=== PATIENT | female | born 1955 | race Caucasian/White ===

== ENCOUNTER → 2016-09-15 | Outpatient (CLI) | payer BC ==
--- NOTE | 2016-09-15 16:22 | Diagnostic Imaging Report ---
EXAMINATION: Three views of the left foot. INDICATION: Left foot pain. FINDINGS: There is mild soft tissue swelling along the plantar aspect of the heel region. No fracture, dislocation, or radiopaque foreign body. Joint alignment is satisfactory. There is a calcaneal spur seen. IMPRESSION: Nonspecific mild soft tissue swelling along the plantar aspect of the heel. Dictated by: Dictated on workstation # [id number]
--- NOTE | 2016-09-17 09:41 | Diagnostic Imaging Report ---
EXAMINATION: Bilateral screening mammogram 2D views with tomosynthesis. The current study was also evaluated with a Computer Aided Detection (CAD) system. INDICATION: Screening. PERSONAL HISTORY: No current complaints stated on the questionnaire. COMPARISON: 11/30/2014. FINDINGS: The breasts are composed of heterogenously dense parenchyma which may decrease mammographic sensitivity. Allowing for technique and positional differences, no suspicious change is seen. IMPRESSION: No significant change. ACR BI-RADS Category 2: Benign findings. Result letter will be mailed to the patient. Note: At least 10% of breast cancer is not imaged by mammography. Dictated by: Dictated on workstation # [id number]
== END ==
LOC: RAD 15:29
PROVIDERS: ATTEND Family Medicine
DX: R22.42 Localized swelling, mass and lump, left lower limb (principal); M79.672 Pain in left foot; Z12.31 Encounter for screening mammogram for malignant neoplasm of breast
CPT/HCPCS: 73630; 77067

== ENCOUNTER → 2017-09-17 | Outpatient (CLI) | payer BC ==
--- NOTE | 2017-09-17 17:42 | Diagnostic Imaging Report ---
INDICATION: Routine screening. Comparison is made with prior studies from 09/15/2016 and 12/03/2014. 2-D and 3-D bilateral screening mammography was performed. The current study was also evaluated with a Computer Aided Detection (CAD) system. FINDINGS: Scattered fibronodular densities are identified bilaterally. The parenchymal pattern is stable. No mass or malignant-appearing microcalcifications are seen. The axillae are unremarkable. IMPRESSION: No mammographic features suspicious for malignancy are identified. ACR BI-RADS Category 1: Negative. Result letter will be mailed to the patient. Note: At least 10% of breast cancer is not imaged by mammography. Dictated by: Dictated on workstation # [id number]
== END ==
LOC: RAD 13:44
PROVIDERS: ATTEND Family Medicine
DX: Z12.31 Encounter for screening mammogram for malignant neoplasm of breast (principal)
CPT/HCPCS: 77067

== ENCOUNTER → 2018-05-06 | Outpatient (CLI) | payer BC ==
--- NOTE | 2018-05-06 18:58 | Diagnostic Imaging Report ---
INDICATION: Left breast pain and heaviness. Correlation is made with prior left mammogram from 09/17/2017 and 09/15/2016. Unilateral left 2-D and 3-D diagnostic mammography was performed with Computer-Aided Detection (CAD) system. FINDINGS: Scattered fibroglandular densities in the left breast are noted. The parenchymal pattern is stable. No mass or malignant-appearing microcalcifications are seen. There are benign calcifications present. Left axilla is unremarkable. IMPRESSION: Stable left mammogram with no mammographic features suspicious for malignancy identified. Even so, sonographic interrogation of the left breast at the area of pain is recommended and will be performed today. ACR BI-RADS Category 0: Incomplete. (Needs additional imaging evaluation). Result letter will be mailed to the patient. Note: At least 10% of breast cancer is not imaged by mammography. Dictated by: Dictated on workstation # [id number]
--- NOTE | 2018-05-06 19:01 | Diagnostic Imaging Report ---
INDICATION: Left breast pain. Correlation is made with diagnostic mammogram earlier same day. FINDINGS: Sonographic interrogation of the area of pain in the left breast performed. There is mild ductal ectasia. There is a small hypoechoic nodule in the 5 o'clock location of the left breast 4 cm from the nipple measuring approximately 6 mm x 3 mm x 5 mm. No internal blood flow is seen. This has benign features. No other abnormalities are detected. IMPRESSION: Circumscribed benign-appearing hypoechoic nodule at the 5 o'clock location of the left breast 4 cm from the nipple. Follow-up left breast ultrasound in six months is recommended to confirm stability. The study is otherwise unremarkable. ACR BI-RADS Category 3: Probably benign findings. Dictated by: Dictated on workstation # [id number]
== END ==
LOC: RAD 12:15
PROVIDERS: ATTEND Family Medicine
DX: N63.23 Unspecified lump in the left breast, lower outer quadrant (principal)
CPT/HCPCS: 76641

== ENCOUNTER → 2018-08-24 | Outpatient (CLI) | payer BC ==
--- NOTE | 2018-08-24 17:08 | Diagnostic Imaging Report ---
INDICATION: Twisted right ankle with pain laterally. TIME OF EXAM: 4:18 p.m. FINDINGS: Three views of the right ankle were obtained. Alignment is normal. Ankle mortise is well maintained. Talar dome is smooth. No fracture or dislocation is seen. There is some soft tissue swelling laterally. There is a large plantar calcaneal spur. IMPRESSION: Lateral soft tissue swelling. No acute bony abnormality is detected. Dictated by: Dictated on workstation # [id number]
== END ==
LOC: RAD 15:59
PROVIDERS: ATTEND Family Medicine
DX: M25.471 Effusion, right ankle (principal); X50.1XXA Overexertion from prolonged static or awkward postures, initial encounter
CPT/HCPCS: 73610

== ENCOUNTER → 2018-12-01 | Outpatient (CLI) | payer BC ==
--- NOTE | 2018-12-01 13:41 | Diagnostic Imaging Report ---
INDICATION: Six-month followup left breast nodule. COMPARISON: Correlation is made with the prior mammograms of 09/17/2017 and 09/15/2016. TECHNIQUE: 2D and 3D bilateral diagnostic mammography was performed with CAD. FINDINGS: Scattered fibroglandular densities are identified bilaterally. The overall parenchymal pattern is stable. Benign calcifications are noted. No mass or malignant appearing microcalcifications are seen. The axillae are unremarkable. IMPRESSION: Stable bilateral mammograms. A left breast ultrasound is recommended to further evaluate the previously noted nodule in the left breast. This will be performed today. ACR BI-RADS Category 0: Incomplete. (Needs additional imaging evaluation). Result letter will be mailed to the patient. Note: At least 10% of breast cancer is not imaged by mammography. Dictated by: Dictated on workstation # [id number]
--- NOTE | 2018-12-01 13:46 | Diagnostic Imaging Report ---
INDICATION: Six-month follow-up left breast nodule. Correlation is made with prior left breast ultrasound from 05/06/2018 as well as diagnostic mammogram earlier same day. Previously noted circumscribed hypoechoic nodule 5:00 location of the left breast, 4 cm from the nipple is again seen. This appears similar in size to prior exam measuring approximately 6 mm x 3 mm x 6 mm. There may be some internal calcifications. No new mass is detected. IMPRESSION: BI-RADS Category 3 Stable left breast nodule 5:00 location, 4 cm from the nipple. This now shows 6 months of stability. Additional follow-up in 6 months is recommended to show continued stability. ACR BI-RADS Category 3: Probably benign findings. Dictated by: Dictated on workstation # [id number]
== END ==
LOC: RAD 12:26
PROVIDERS: ATTEND Family Medicine
DX: N63.20 Unspecified lump in the left breast, unspecified quadrant (principal)
CPT/HCPCS: 76642; 77066

== ENCOUNTER → 2020-03-22 | Outpatient (CLI) | payer BC ==
--- NOTE | 2020-03-22 13:28 | Diagnostic Imaging Report ---
PROCEDURE: US right lower extremity venous. TECHNIQUE: Multiple real-time grayscale images were obtained over the right lower extremity in various projections. Additional spectral analysis and color Doppler duplex images were also obtained. INDICATION: Right-sided calf pain. There is no evidence of right lower extremity DVT. Right lower extremity deep venous system shows normal compressibility with normal response to augmentation and Valsalva. No fluid collection or mass is detected. IMPRESSION: No evidence of right lower extremity DVT. Dictated by: Dictated on workstation # [id number]
== END ==
LOC: RAD 12:24
PROVIDERS: ATTEND Family Medicine
DX: M79.661 Pain in right lower leg (principal)

== ENCOUNTER → 2020-05-10 | Outpatient (CLI) | payer BC ==
--- NOTE | 2020-05-10 11:42 | Diagnostic Imaging Report ---
Ultrasound left breast limited. Indication: Left axillary fullness The diagnostic mammogram performed prior to the study failed to show any sign of malignancy. There is no acute abnormality involving the left axilla either. On this exam there is no discrete solid or cystic mass identified with the exception of a small 5 x 7 mm lymph node in the left axilla. It may be the patient's abnormality involving the left axilla is related to musculoskeletal injury. Clinical followup is recommended. Impression: There is no evidence for malignancy or for an acute abnormality. Clinical followup is recommended. ACR BI-RADS Category 1: Negative. Result letter will be mailed to the patient. Note: At least 10% of breast cancer is not imaged by mammography. Dictated by: Dictated on workstation # [id number]
--- NOTE | 2020-05-11 08:42 | Diagnostic Imaging Report ---
EXAM: Bilateral diagnostic mammogram INDICATION: Left axillary fullness COMPARISONS: This study was compared to the prior exams of 12/01/2018, 05/06/2018, 09/17/2017 and 09/15/2016. At this time, the patient does complain of a fullness in the left axilla with some pain. A marker was placed in the area of concern. There is no primary or secondary sign of malignancy evident in this area. The overall appearance of the breasts has not changed significantly otherwise. There are scattered fibroglandular densities in both breasts which could obscure a lesion but there is no primary or secondary sign of malignancy noted. The small benign-appearing nodular density in the left breast seen previously seems stable. IMPRESSION: 1. There is no abnormality to account for the patient's left axillary fullness/pain. Ultrasound would be recommended for further evaluation. 2. The overall appearance of the breasts has not changed significantly otherwise. ACR BI-RADS Category 0: Incomplete. (Needs additional imaging evaluation). Result letter will be mailed to the patient. Note: At least 10% of breast cancer is not imaged by mammography. Dictated by: Dictated on workstation # [id number]
== END ==
LOC: RAD 09:34
PROVIDERS: ATTEND Family Medicine
DX: N63.32 Unspecified lump in axillary tail of the left breast (principal)
CPT/HCPCS: 76642; 77066; G0279; 77062

== ENCOUNTER → 2021-08-08 | Outpatient (CLI) | payer BC, OTHER ==
--- NOTE | 2021-08-08 21:31 | Diagnostic Imaging Report ---
INDICATION: Routine screening. COMPARISON: Prior mammograms from 05/10/2020 and 12/01/2018. EXAMINATION: 2D and 3D bilateral screening mammography was performed with CAD. The current study was also evaluated with a Computer Aided Detection (CAD) system. FINDINGS: Scattered fibroglandular densities are identified, bilaterally. The parenchymal pattern is stable. No mass or malignant-appearing microcalcifications are seen. Axillae are unremarkable. IMPRESSION: No mammographic features suspicious for malignancy are identified. ACR BI-RADS Category 1: Negative. Result letter will be mailed to the patient. Note: At least 10% of breast cancer is not imaged by mammography. Dictated by: Dictated on workstation # [id number]
== END ==
LOC: RAD 10:15
PROVIDERS: ATTEND Family Medicine
DX: Z12.31 Encounter for screening mammogram for malignant neoplasm of breast (principal)
CPT/HCPCS: 77063; 77067

== ENCOUNTER → 2022-09-26 | Outpatient (CLI) | payer MEDICARE, OTHER ==
--- NOTE | 2022-09-26 13:01 | Diagnostic Imaging Report ---
Indication: Palpable lump left breast. Comparison is made with prior mammograms from 08/08/2021 and 05/10/2020. 2-D and 3-D bilateral diagnostic mammography was performed with CAD. Both breasts are heterogeneously dense, limiting the sensitivity of mammography. BB marker was placed at the area of palpable abnormality upper left breast. No underlying mass is detected. No malignant-appearing microcalcifications are seen. Axillae are unremarkable. IMPRESSION: BI-RADS Category 0 No mammographic features suspicious for malignancy are identified. Even so, directed sonographic interrogation of the area of palpable abnormality left breast is recommended and will be performed today. ACR BI-RADS Category 0: Incomplete. (Needs additional imaging evaluation). Result letter will be mailed to the patient. Note: At least 10% of breast cancer is not imaged by mammography. Dictated by: Dictated on workstation # [id number]
--- NOTE | 2022-09-26 13:55 | Diagnostic Imaging Report ---
INDICATION: Palpable lump left breast. Correlation is made with diagnostic mammogram earlier same day. Sonographic interrogation of the area of palpable abnormality upper left breast was performed. No sonographic abnormality is identified. No solid or cystic mass is detected. IMPRESSION: No sonographic abnormality is identified. ACR BI-RADS Category 1: Negative. Result letter will be mailed to the patient. Note: At least 10% of breast cancer is not imaged by mammography. BI-RADS Category 1 Dictated by: Dictated on workstation # [id number]
== END ==
LOC: RAD 12:27
PROVIDERS: ATTEND Family Medicine
DX: N63.20 Unspecified lump in the left breast, unspecified quadrant (principal)
CPT/HCPCS: 76642; 77066; G0279; 77062